=== PATIENT | female | born 1990 | race Caucasian/White ===

== ENCOUNTER → 2018-03-05 | Outpatient (REF) | payer OTHER ==
[2018-03-05 18:21] LABS: HCG, SERUM QUANTITATIVE 118544 MIU/ML
[2018-03-05 18:42] LABS: HEMATOCRIT 37.5 % (36.0-47.0); HEMOGLOBIN 12.9 g/dl (12.0-15.5); MEAN CORPUSCULAR HEMOGLOBIN 31.8 pg (27.0-33.0); MEAN CORPUSCULAR HGB CONC 34.4 g/dl (32.0-36.5); MEAN CORPUSCULAR VOLUME 92.4 fl (80.0-96.0); PLATELET COUNT, AUTOMATED 263 10^3/uL (150-450); RED BLOOD COUNT 4.06 10^6/uL (4.00-5.40); RED CELL DISTRIBUTION WIDTH 12.8 % (11.5-14.5); WHITE BLOOD COUNT 10.7 10^3/uL (4.0-10.0)
[2018-03-06 09:53] LABS: RUBELLA IgG QUALITATIVE IMMUNE (IMMUNE)
[2018-03-06 09:57] LABS: HBsAg Prenatal NEGATIVE (NEGATIVE)
[2018-03-06 10:22] LABS: HEPATITIS C VIRUS ABY INDEX 0.1 INDEX (<0.8)
[2018-03-06 10:23] LABS: HIV 1&2 SCREEN CENTAUR NEGATIVE (NEGATIVE)
== END ==
LOC: M LAB REF 16:54
DX: O36.80X0 Pregnancy with inconclusive fetal viability, not applicable or unspecified (principal)

== ENCOUNTER 2018-03-07 11:47 | Emergency (ER) | payer MEDICARE, OTHER ==
[2018-03-07] MEDS: NS 1,000 ML IV (14:16)
[2018-03-07 14:17] LABS: BASO # 0.1 10^3/uL (0.0-0.2); BASO % 0.4 % (0.0-1.0); EOS % 0.1 % (0.0-3.0); HEMATOCRIT 37.9 % (36.0-47.0); IMMATURE GRANULOCYTE % 0.3 % (0-3.0); LYMPH # 1.7 10^3/uL (1.5-6.5); LYMPH % 14.9 % (24.0-44.0); MEAN CORPUSCULAR HEMOGLOBIN 31.9 pg (27.0-33.0); MEAN CORPUSCULAR HGB CONC 34.3 g/dl (32.0-36.5); MEAN CORPUSCULAR VOLUME 93.1 fl (80.0-96.0); MONO # 0.5 10^3/uL (0.0-0.8); MONO % 4.6 % (0.0-5.0); NEUTROPHILS # 9.2 10^3/uL (1.8-7.7); NEUTROPHILS % 79.7 % (36.0-66.0); PLATELET COUNT, AUTOMATED 259 10^3/uL (150-450); RED BLOOD COUNT 4.07 10^6/uL (4.00-5.40); RED CELL DISTRIBUTION WIDTH 12.5 % (11.5-14.5); WHITE BLOOD COUNT 11.6 10^3/uL (4.0-10.0)
[2018-03-07] MEDS: METOCLOPRAMIDE INJ 10MG/2ML VIAL (J2765) IV (14:17)
[2018-03-07 14:39] LABS: ALBUMIN 3.5 GM/DL (3.2-5.2); ALBUMIN/GLOBULIN RATIO 1.03 (1.00-1.93); ALKALINE PHOSPHATASE 72 U/L (45-117); ALT/SGPT 17 U/L (12-78); ANION GAP 11 MEQ/L (8-16); AST/SGOT 5 U/L (7-37); BILIRUBIN,DIRECT 0.1 MG/DL (0.0-0.2); BILIRUBIN,TOTAL 0.5 MG/DL (0.2-1.0); BLOOD UREA NITROGEN 7 MG/DL (7-18); CALCIUM LEVEL 9.1 MG/DL (8.5-10.1); CARBON DIOXIDE LEVEL 24 MEQ/L (21-32); CHLORIDE LEVEL 106 MEQ/L (98-107); CREATININE FOR GFR 0.56 MG/DL (0.55-1.30); GLOMERULAR FILTRATION RATE > 60.0 (>60); GLUCOSE, FASTING 91 MG/DL (70-100); LIPASE 104 U/L (73-393); POTASSIUM SERUM 3.5 MEQ/L (3.5-5.1); SODIUM LEVEL 141 MEQ/L (136-145); TOTAL PROTEIN 6.9 GM/DL (6.4-8.2)
[2018-03-07 15:11] LABS: KETONE, URINE AUTO RFX 2+ mg/dL (NEGATIVE); MUCUS, URINE RFX LARGE (NEGATIVE); NITRITE, URINE AUTO RFX NEGATIVE (NEGATIVE); RBC, URINE AUTO RFX 3 /HPF (0-3); SPECIFIC GRAVITY UR AUTO RFX 1.027 (1.002-1.035); SQUAM EPITHELIAL CELL UR AURFX 22 /HPF (0-6)
[2018-03-07 15:12] LABS: LEUKOCYTE ESTERASE UR AUTO RFX 1+ (NEGATIVE); WBC, URINE AUTO RFX 11 /HPF (0-3)
[2018-03-07] MEDS: ONDANSETRON 4MG/2ML VIAL (J2405) IV (15:48)
== END 2018-03-07 17:11 | disposition home or self-care (01) ==
LOC: M ED 11:47
DX: O21.0 Mild hyperemesis gravidarum (principal); Z3A.08 8 weeks gestation of pregnancy; Z79.899 Other long term (current) drug therapy
CPT/HCPCS: J2405

== ENCOUNTER → 2019-08-24 | Outpatient (POV) | payer MEDICARE ==
[~2019-08-24] VITALS: Ht 167.6 cm; Wt 122.7 kg
[~2019-08-24] MED LIST: LAMI25TA PO; LEXA5TAB13 PO; REGL10TA6 PO
[2019-08-24 13:20] VITALS: BP 140/66
--- NOTE | 2019-08-25 11:14 | IRCOV ---
[facility] IR Consult Office Visit IR Consult Office Visit DATE: Aug 24, 2019 REASON FOR CONSULTATION/CHIEF COMPLAINT: AVM left leg. 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 This started as a small vein and after puberty it grew in size and is associated with pain, tenderness and bleeding. This is been treated 4 times with embolization in [facility]. Embolizations helps for a couple of years but then symptoms recur. Patient delivered a baby 10 months ago and symptoms worsened with increased pain and bleeding from the AVM since that time. Currently she is not able to stand for more than 5 minutes without bleeding and oozing and has to elevates legs for symptom relief. Last embolization was performed in 2018. No surgeries in the leg. She does wear compression stockings to the knees. ALLERGIES: Please see below. HOME MEDICATIONS: Please see below. PAST MEDICAL HISTORY: No other history PAST SURGICAL HISTORY: None FAMILY HISTORY: Noncontributory SOCIAL HISTORY: Occasional marijuana. No alcohol or smoking. REVIEW OF SYSTEMS: Otherwise negative. PHYSICAL EXAMINATION: VITAL SIGNS: Please see below. GENERAL APPEARANCE: Appears well. Comfortable at rest. HEENT: No scleral icterus. RESPIRATORY: Normal breathing at rest. CARDIOVASCULAR: Normal rate. ABDOMEN: Soft nontender. EXTREMITIES: Left lower extremity: 10 x 10 cm area of skin changes on the anterior left medial clay associated with underlying AVM. Overlying punctate areas of bleeding and scab. Leg warm to touch. Femoral pulse 2+ popliteal pulse 2+ DP PT +. Motor 5 out of 5 sensation intact. Right lower; no skin changes. Warm to touch. Femoral pulse 2+ popliteal pulse 2+ DP PT +. Motor 5 out of 5 sensation intact. NEUROLOGICAL: Alert and oriented. PSYCHIATRIC: Appropriate to circumstance. LABORATORY DATA: Non recent Imaging: I reviewed the reports of the prior angiography performed in [facility] however I do not have any images available to review. We did call the prior doctor's office and they said they do not have the imaging available. Patient and my office staff will reach out to [facility] radiology department to try to get a hold of the angiography imaging. ASSESSMENT/PLAN: 29-year-old female with known AVM, with worsening symptoms, which is typical after a life event including recent delivery. We discussed the risks and benefits of angiography and intervention. Patient would like to proceed. We have scheduled the patient for a diagnostic angiography and intervention in the same setting as appropriate. I spent 45 minutes in consultation with the patient. Thank you for this referral. Cc Dr. Brand Allergies Coded Allergies: No Known Allergies (Unverified , 03/07/18) Home Medications Scheduled Escitalopram Oxalate (Lexapro), 5 MG PO DAILY, (Reported) Lamotrigine (Lamictal), 50 MG PO DAILY, (Reported) Scheduled PRN Metoclopramide HCl (Reglan), 10 MG PO Q6H PRN for NAUSEA VS, I&O, 24H, Fishbone Vital Signs/I&O Vital Signs Date Time Temp Pulse Resp B/P (MAP) Pulse Ox O2 Delivery O2 Flow Rate FiO2 08/24/19 13:20 97.9 108 18 140/66 (90) 95 Room Air ROBERTA BROOKE MD Aug 25, 2019 11:14
== END ==
LOC: M IRPOV 13:11
PROVIDERS: ATTEND Radiology Diagnostic Radiology
DX: Q27.32 Arteriovenous malformation of vessel of lower limb (principal)

== ENCOUNTER → 2019-11-11 | Outpatient (CLI) | payer MEDICARE ==
[~2019-11-11] MED LIST changes: +BIRTH CONTROL; +EMBOSPHERE MICROSPHERES 500-700UM(MICRONS) 2ML SYRINGE As Ordered ONE; +ISOVUE-300 61% 50ML VIAL As Ordered ONE; +LIDOCAINE 1% MDV 20ML VIAL As Ordered ONE; +MIDAZOLAM INJ 2MG/2ML VIAL (J2250 PER 1MG) As Ordered ONE; +ONDANSETRON 4MG/2ML VIAL IV PRN; +PERCOCET 5MG/325MG TAB As Ordered ONE; +PREN29TA4 PO; +ZOLO100T PO; +diphenhydrAMINE 50MG/ML VIAL (J1200) As Ordered ONE; +fentaNYL 100 MCG/2 ML INJECTION (J3010) As Ordered ONE
[2019-11-11 07:34] LABS: HEMATOCRIT 38.2 % (36.0-47.0); HEMOGLOBIN 12.8 g/dl (12.0-15.5); MEAN CORPUSCULAR HEMOGLOBIN 30.9 pg (27.0-33.0); MEAN CORPUSCULAR HGB CONC 33.5 g/dl (32.0-36.5); MEAN CORPUSCULAR VOLUME 92.3 fl (80.0-96.0); PLATELET COUNT, AUTOMATED 253 10^3/uL (150-450); RED BLOOD COUNT 4.14 10^6/uL (4.00-5.40); WHITE BLOOD COUNT 8.3 10^3/uL (4.0-10.0)
[2019-11-11 07:58] LABS: BLOOD UREA NITROGEN 11 MG/DL (7-18); CALCIUM LEVEL 8.9 MG/DL (8.5-10.1); CARBON DIOXIDE LEVEL 25 MEQ/L (21-32); CHLORIDE LEVEL 109 MEQ/L (98-107); CREATININE FOR GFR 0.58 MG/DL (0.55-1.30); GLOMERULAR FILTRATION RATE > 60.0 (>60); GLUCOSE, FASTING 87 MG/DL (70-100); POTASSIUM SERUM 3.7 MEQ/L (3.5-5.1); SODIUM LEVEL 139 MEQ/L (136-145)
--- NOTE | 2019-11-11 10:57 | POST-OPPD ---
Postoperative Procedure Note Date Of Procedure: Nov 11, 2019 Time Of Procedure: 10:56 PREOPERATIVE DIAGNOSIS: left leg AV POSTOPERATIVE DIAGNOSIS: same FINDINGS: left leg AVM with numerous hypertrophied serpentine arterial contributors. PROCEDURE: embolization SURGEON: suraj ANESTHESIA: mod sed ESTIMATED BLOOD LOSS: < 5 ml COMPLICATIONS: none POSTOPERATIVE CONDITION: stable ROBERTA BROOKE MD Nov 11, 2019 10:57
[2019-11-11] MEDS: PERCOCET 5MG/325MG TAB PO PRN (12:46)
[2019-11-11 14:00] VITALS: BP 135/74
--- NOTE | 2019-11-12 14:11 | REP ---
IR Left leg angiogram. IR Selective left leg AVM embolization. IR Moderate sedation. Clinical Information: Left leg AVM. Pain and bleeding. Physician: Dr Corona.Procedure: The patient was advised of the benefits, risks, and alternatives of the procedure and informed consent was obtained.A time out was performed with verification of the patient's name, MRN, site of procedure, and type of procedure to be performed. The patient was positioned in the supine position on the angiographic table. The site was prepped and draped in the usual sterile fashion.Moderate sedation was performed by the physician including the presence of an independent trained observer who assisted in monitoring the patient's level of consciousness and physiological status. Following the administration of Fentanyl and Versed, the physician spent 120 minutes of continuous [id number] time with the patient. A technician telecommunication systems radiograph reveals a coil pack projecting over the distal femur. The right femoral artery was accessed with a micropuncture kit. A [place] wire was advanced into the aorta. The micropuncture sheath was exchanged over the wire for a a 6-Maltese vascular sheath. A flush catheter was advanced over the wire and used to catheterize the abdominal bifurcation. The wire was advanced under fluoroscopy guidance through the catheter into the left superficial femoral artery. The catheter was exchanged over the wire for a 5-Maltese glide cath. The glide cath was used to catheterize the left superficial femoral artery. An arteriogram was performed and this demonstrates patent proximal, mid and distal superficial femoral artery. An angiogram further down the leg was performed and this demonstrates numerous, hypertrophied, serpiginous arteries and numerous early draining veins. Patent popliteal artery. A below-knee runoff arteriogram was performed and this demonstrates extensive abnormal arterial vascularity and early venous drainage continues down to the mid tibia. Patent three-vessel runoff below the knee. The micro catheter and micro wire were inserted through the diagnostic catheter and used to sub selectively catheterize a third order branch off the popliteal artery. An arteriogram was performed and this demonstrates part supply to the arteriovenous malformation over the medial condyle of the femur. and early draining vein. There is also supply to a normal artery below the knee from this location, therefore this was not embolized. The micro catheter in conjunction with the micro wire was used to catheterize a different second order branch off the popliteal artery. An arteriogram was performed and this demonstrates supply to the AVM with early draining vein but also supply to normal below-knee arteries. Therefore this was not suitable location for embolization. The micro catheter was retracted and in conjunction with a micro wire was used to sub selectively catheterize a third order branch off the popliteal artery. An arteriogram was performed and this demonstrates supply to the AVM and early draining vein. No normal artery supply from this location. Given this was a single 4 mm vessel and appropriately distal in the bed of the arteriovenous malformation, this was coiled using a single coil. The micro catheter was retracted and used to sub selectively catheterize a third order branch off the distal superficial femoral artery. An arteriogram was performed and this demonstrates supply only to the AVM with hypertrophied, enlarged, serpiginous arteries and early draining veins. No normal artery supply from this location. 5-700 micron Embospheres were used from this location, under fluoroscopic guidance to embolize this segment of the AVM and reduce flow. The micro catheter was retracted and in conjunction with a micro wire was used to catheterize a different third order branch off the superficial femoral artery. An arteriogram was performed and this demonstrates supply to the AVM, hypertrophied, serpiginous arteries and early draining vein. No normal artery supplied from catheterized location. 7-900 micron beads were injected from this location under fluoroscopy guidance to decrease vascular supply to the AVM. The micro catheter in conjunction with a micro wire was retracted and used to sub selectively catheterize a fourth order branch off the superficial femoral artery. An arteriogram was performed and this demonstrates supply to the AVM. No normal arterial supply from this location. Gelfoam and 7-900 micron embospheres were injected from this location under fluoroscopy guidance. The micro catheter in conjunction with a micro wire was used to catheterize a different third order branch off the superficial femoral artery an arteriogram was performed. This demonstrates brisk supply to the AVM and early venous drainage. No normal artery supplied from this location. Additional Embospheres and Gelfoam was injected from this location under fluoroscopy guidance. The micro was retracted and in conjunction with a micro wire was used to recatheterize a third order branch off the superficial femoral artery which was previously catheterized. An arteriogram was performed and this demonstrates supply to the AVM. No normal artery supply from this location. Further embolization was performed from this location using Gelfoam and beads. The micro catheter was retracted to the distal superficial femoral artery. An arteriogram was performed and this demonstrates good forward flow in the superficial femoral artery, popliteal artery and below the knee. There is approximately 25% decrease in AVM vascularity, mainly over the condyles of the femur. Catheter and wire were removed. A Mynx device was used to close the right groin arteriotomy, hemostasis achieved and a sterile dressing was applied to the site. Patient tolerated the procedure well and was transferred to PRU in stable condition. Complications: None. Estimated blood loss: Less than 5 ml. Impression: 1. Left leg angiogram demonstrates large and complex left leg arteriovenous malformation with supply from numerous hypertrophied arteries, several niduses and multiple early draining veins. 2. Successful sub selective part AVM embolization. The patient will need serial treatments to reduce vascularity of AVM and symptom relief. 3. Patient to follow up in IR clinic in 1 month. Thank you for this referral. Electronically Signed by Deepthi Corona MD 11/12/2019 02:09 P
== END ==
LOC: M IRPRO 06:33
PROVIDERS: ATTEND Radiology Diagnostic Radiology
DX: Q27.32 Arteriovenous malformation of vessel of lower limb (principal)

== ENCOUNTER → 2021-05-02 | Outpatient (REF) | payer MEDICARE ==
[~2021-05-02] MED LIST changes: -EMBOSPHERE MICROSPHERES 500-700UM(MICRONS) 2ML SYRINGE As Ordered ONE; -ISOVUE-300 61% 50ML VIAL As Ordered ONE; -LIDOCAINE 1% MDV 20ML VIAL As Ordered ONE; -MIDAZOLAM INJ 2MG/2ML VIAL (J2250 PER 1MG) As Ordered ONE; -ONDANSETRON 4MG/2ML VIAL IV PRN; -PERCOCET 5MG/325MG TAB As Ordered ONE; -diphenhydrAMINE 50MG/ML VIAL (J1200) As Ordered ONE; -fentaNYL 100 MCG/2 ML INJECTION (J3010) As Ordered ONE
== END ==
LOC: M LAB REF 14:49
PROVIDERS: ATTEND Physician Assistant
DX: D49.2 Neoplasm of unspecified behavior of bone, soft tissue, and skin (principal); L50.9 Urticaria, unspecified; R21 Rash and other nonspecific skin eruption; L29.9 Pruritus, unspecified